=== PATIENT | female | born 1975 | race Caucasian/White ===

== ENCOUNTER 2016-12-22 08:00 | Outpatient (RCR) | payer OTHER ==
[~2016-12-22 08:00] MED LIST: NORCO 325 MG-51 TAB PO; TAMAZAPAM PO
== END 2016-12-27 | disposition home or self-care (01) ==
LOC: MKS.ESL.PT
DX: M54.5 Low back pain (principal)
CPT/HCPCS: G0283-GP; G8990-GP; G8991-GP

== ENCOUNTER 2017-01-15 08:00 | Outpatient (RCR) | payer OTHER | END 2017-03-30 | disposition still patient (30) | LOC: MKS.ESL.PT | DX: M43.06 Spondylolysis, lumbar region (principal) ==